=== PATIENT | male | born 1960 | race Caucasian/White ===

== ENCOUNTER 2016-11-11 05:56 | Inpatient (IN) | payer MEDICAID ==
[~2016-11-11] VITALS: Ht 188 cm; Wt 109.2 kg
[2016-11-11] MEDS ORDERED: SODIUM CHLORIDE 0.9% 1,000 ML IV ONE (07:00)
[2016-11-11] MEDS ORDERED: FUROSEMIDE 40 MG/4 ML VIAL IV ONE (07:00)
[2016-11-11 07:50] LABS: Basophils # (auto) 0 uL; Basophils % (auto) 0.2 % (0.0-2.0); Eosinophils # (auto) 0.1 uL; Eosinophils % (auto) 1.3 % (0.0-7.0); Hematocrit 44.3 % (41.0-53.0); Hemoglobin 14.6 g/dL (13.5-17.5); Lymphocytes # (auto) 1.3 uL; Lymphocytes % (auto) 13.8 % (10.0-50.0); Mean Corpuscular Hemoglobin 29.8 pg (28.0-32.0); Mean Corpuscular Hgb Conc. 33.1 g/dL (32.0-36.0); Mean Corpuscular Volume 90.2 fL (80.0-100.0); Mean Platelet Volume 8.6 fL (7.4-10.4); Monocytes # (auto) 0.7 uL; Monocytes % (auto) 7.7 % (0.0-12.0); Neutrophils # (auto) 7.4 uL; Platelet Count (auto) 298 10^3/uL (140-450); Red Cell Distribution Width 14.1 % (11.6-16.0); White Blood Cell 9.6 10^3/uL (4.4-10.8)
[2016-11-11 08:16] LABS: Albumin 3.6 g/dL (3.4-5.0); Bilirubin, Total 0.8 mg/dL (0.2-1.0); Calcium 8.5 mg/dL (8.5-10.1); Magnesium 2.3 mg/dL (1.6-2.6); Potassium 4.1 mmol/L (3.5-5.1); Total Protein 7.2 g/dL (6.4-8.2)
[2016-11-11 08:19] LABS: B-Type Natriuretic Peptide 997.26 pg/mL (0-100); Temperature: 23.3 C (20.0-25.0)
[2016-11-11 09:22] LABS: Urine RBC None Seen /hpf (0 - 3)
[2016-11-11 09:42] LABS: Urine Bilirubin Negative (Negative); Urine Blood Negative /uL (Negative); Urine Color Yellow (Yellow); Urine Glucose Normal (Normal); Urine Ketone Negative (Negative); Urine Nitrite Negative (Negative); Urine Squamous Epithelial Cell FEW /hpf (<5); Urine Urobilinogen Normal (Negative); Urine pH 5.5 (5.0-8.0)
[2016-11-11] MEDS ORDERED: ACETAMINOPHEN 500 MG TAB PO PRN (12:45)
[2016-11-11] MEDS ORDERED: ALBUTEROL SULF 2.5 MG/0.5ML(0.5%) NEB SOLN NEB PRN (12:45)
[2016-11-11] MEDS ORDERED: NITROGLYCERIN 0.4 MG SL TAB SL PRN (12:45)
[2016-11-11] MEDS ORDERED: PROMETHAZINE HCL 25 MG/ML 1ML IV PRN (12:45)
[2016-11-11] MEDS ORDERED: MORPHINE SULF INJ 2 MG/ML SYRINGE 1ML IV PRN ×2 (12:45)
[2016-11-11] MEDS ORDERED: LEVOFLOXACIN 500MG 100 ML IV ONE (12:45)
[2016-11-11] MEDS ORDERED: TEMAZEPAM 15 MG CAP PO PRN (12:45)
[2016-11-11] MEDS ORDERED: LORazepam 0.5 MG TAB PO PRN (12:45)
[2016-11-11] MEDS: ENOXAPARIN SOD 40 MG/0.4 ML SYRINGE SC SCH (12:49)
[2016-11-11 13:21] LABS: Amylase 34 U/L (25-115)
[2016-11-11] MEDS ORDERED: POTA-165 PO (14:01)
[2016-11-11] MEDS ORDERED: LISI10TA6 PO (14:01)
[2016-11-11] MEDS ORDERED: ASPI81TA27 PO (14:01)
[2016-11-11] MEDS ORDERED: FURO40TA4 PO (14:01)
[2016-11-11 14:12] LABS: INR 1.03 (0.9-1.15); Partial Thromboplastin Time 29.3 sec (22.64-33.71); Prothrombin Time 11.2 sec (9.37-12.3)
[2016-11-11 14:20] VITALS: BP 119/69
[2016-11-11 14:33] VITALS: BP 159/72
[2016-11-11] MEDS: POTASSIUM CHL 20 Meq TABLET PO SCH (15:22)
[2016-11-11] MEDS: FAMOTIDINE (10MG/ML) 2ML VL IV SCH (15:22)
[2016-11-11] MEDS: CARVEDILOL 3.125 MG TAB PO SCH ×2 (15:23→22:25)
[2016-11-11 17:00] VITALS: BP 105/71
[2016-11-11] MEDS: ALBUTEROL SULF 2.5 MG/0.5ML(0.5%) NEB SOLN NEB SCH (19:04)
[2016-11-11] MEDS ORDERED: PROMETHAZINE W/CODEINE 5 ML ORAL SYRUP PO PRN (21:00)
[2016-11-11 22:00] VITALS: BP 115/73
[2016-11-11 23:30] VITALS: BP 101/53
[2016-11-12] MEDS: ALBUTEROL SULF 2.5 MG/0.5ML(0.5%) NEB SOLN NEB SCH ×4 (00:28→18:39)
[2016-11-12] MEDS: FAMOTIDINE (10MG/ML) 2ML VL IV SCH ×2 (00:33→12:04)
[2016-11-12] MEDS: HYDROcodone-ACET 5/325MG TAB PO PRN ×2 (00:46→18:14)
[2016-11-12 05:00] VITALS: BP 103/68
[2016-11-12 07:53] VITALS: BP 106/62
[2016-11-12 09:23] LABS: B-Type Natriuretic Peptide 698.43 pg/mL (0-100); Temperature: 22.9 C (20.0-25.0)
[2016-11-12] MEDS: ENOXAPARIN SOD 40 MG/0.4 ML SYRINGE SC SCH (09:27)
[2016-11-12] MEDS: POTASSIUM CHL 20 Meq TABLET PO SCH ×2 (09:27→22:28)
[2016-11-12] MEDS: CARVEDILOL 3.125 MG TAB PO SCH ×2 (09:27→22:27)
[2016-11-12] MEDS ORDERED: FUROSEMIDE 40 MG/4 ML VIAL IV SCH (10:00)
[2016-11-12] MEDS ORDERED: LEVOFLOXACIN 500MG 100 ML IV SCH (10:00)
[2016-11-12 12:21] VITALS: BP 110/65
[2016-11-12] MEDS ORDERED: ASPirin-EC 81 mg tab PO ONE (14:00)
[2016-11-12 15:52] VITALS: BP 97/66
[2016-11-12 20:00] VITALS: BP 121/61
[2016-11-12] MEDS: FUROSEMIDE 40 MG/4 ML VIAL IV SCH (22:26)
[2016-11-12] MEDS: ENALAPRIL MALEATE 2.5 MG TAB PO SCH (22:28)
[2016-11-13] MEDS: HYDROcodone-ACET 5/325MG TAB PO PRN (00:26)
[2016-11-13] MEDS: ALBUTEROL SULF 2.5 MG/0.5ML(0.5%) NEB SOLN NEB SCH ×3 (01:15→11:40)
[2016-11-13 05:10] VITALS: BP 106/48
[2016-11-13 07:41] LABS: Basophils # (auto) 0 uL; Basophils % (auto) 0.4 % (0.0-2.0); Eosinophils # (auto) 0.4 uL; Eosinophils % (auto) 3.5 % (0.0-7.0); Hematocrit 46.5 % (41.0-53.0); Hemoglobin 15.5 g/dL (13.5-17.5); Mean Corpuscular Hemoglobin 29.8 pg (28.0-32.0); Mean Corpuscular Hgb Conc. 33.4 g/dL (32.0-36.0); Mean Corpuscular Volume 89.1 fL (80.0-100.0); Monocytes # (auto) 1.1 uL; Monocytes % (auto) 10.9 % (0.0-12.0); Neutrophils # (auto) 6.6 uL; Neutrophils % (auto) 65.2 % (37.0-80.0); Platelet Count (auto) 316 10^3/uL (140-450); Red Cell Distribution Width 14.1 % (11.6-16.0); White Blood Cell 10.1 10^3/uL (4.4-10.8)
[2016-11-13 08:00] VITALS: BP 104/70
[2016-11-13 08:04] VITALS: BP 104/70
[2016-11-13 08:14] LABS: B-Type Natriuretic Peptide 324.06 pg/mL (0-100); Temperature: 23.5 C (20.0-25.0)
[2016-11-13 08:17] LABS: BUN/Creatinine Ratio 21.7; Calcium 8.9 mg/dL (8.5-10.1); Potassium 3.9 mmol/L (3.5-5.1)
[2016-11-13] MEDS: CARVEDILOL 3.125 MG TAB PO SCH (09:40)
[2016-11-13] MEDS: ENALAPRIL MALEATE 2.5 MG TAB PO SCH (09:41)
[2016-11-13] MEDS: POTASSIUM CHL 20 Meq TABLET PO SCH (09:41)
[2016-11-13] MEDS: FUROSEMIDE 40 MG/4 ML VIAL IV SCH (09:41)
[2016-11-13] MEDS: ENOXAPARIN SOD 40 MG/0.4 ML SYRINGE SC SCH (09:42)
[2016-11-13] MEDS ORDERED: ASPirin-EC 81 mg tab PO SCH (10:00)
[2016-11-13] MEDS ORDERED: ENA2.5T PO (10:13)
[2016-11-13] MEDS ORDERED: ATOR10TA52 PO (10:13)
[2016-11-13] MEDS ORDERED: CAR3125T PO (10:13)
[2016-11-13 10:58] VITALS: BP 104/70
[2016-11-13 11:26] VITALS: BP 100/52
== END 2016-11-13 12:00 | disposition home or self-care (01) | DRG 194 ==
LOC: ER 05:56 → TELE 05:57 → TELE-WESTW 13:37 → TELE-E-ADS 13:57 → TELE-WESTW 14:26
PROVIDERS: ADMIT Internal Medicine; ATTEND Internal Medicine
DX: I11.0 Hypertensive heart disease with heart failure (principal); I95.9 Hypotension, unspecified; I42.8 Other cardiomyopathies; K42.9 Umbilical hernia without obstruction or gangrene; Z68.30 Body mass index [BMI] 30.0-30.9, adult; F41.9 Anxiety disorder, unspecified; J44.9 Chronic obstructive pulmonary disease, unspecified; I50.23 Acute on chronic systolic (congestive) heart failure; K43.9 Ventral hernia without obstruction or gangrene; E66.9 Obesity, unspecified; E78.5 Hyperlipidemia, unspecified; F15.10 Other stimulant abuse, uncomplicated; F17.210 Nicotine dependence, cigarettes, uncomplicated; R00.0 Tachycardia, unspecified; Z91.19 Patient's noncompliance with other medical treatment and regimen; Z90.89 Acquired absence of other organs
CPT/HCPCS: 36415; 71020; 74176; 80048; 80053; 80061; 80307; 81001; 82150; 82550; 83690; 83735; 83880; 84443; 84484; 85025; 85610; 85652; 85730; 93005; 93306; 94640; 94761; 96374; J1956; J3490

== ENCOUNTER 2016-12-08 00:38 | Emergency (ER) | payer MEDICAID ==
[~2016-12-08] VITALS: Ht 188 cm; Wt 107.5 kg
[~2016-12-08 00:38] MED LIST: ASPI81TA27 PO; ATOR10TA52 PO; CAR3125T PO; ENA2.5T PO; FURO40TA4 PO; POTA-165 PO
[2016-12-08 01:58] LABS: Basophils # (auto) 0.1 uL; Basophils % (auto) 0.6 % (0.0-2.0); CONDITION Y; Eosinophils # (auto) 0.4 uL; Eosinophils % (auto) 3.6 % (0.0-7.0); Hematocrit 41.5 % (41.0-53.0); Hemoglobin 13.7 g/dL (13.5-17.5); Lymphocytes # (auto) 2.3 uL; Lymphocytes % (auto) 21.6 % (10.0-50.0); Mean Corpuscular Hemoglobin 29.7 pg (28.0-32.0); Mean Platelet Volume 8.5 fL (7.4-10.4); Monocytes # (auto) 0.7 uL; Monocytes % (auto) 6.3 % (0.0-12.0); Neutrophils # (auto) 7.2 uL; Neutrophils % (auto) 67.9 % (37.0-80.0); Platelet Count (auto) 309 10^3/uL (140-450); Red Cell Distribution Width 14.8 % (11.6-16.0); White Blood Cell 10.5 10^3/uL (4.4-10.8)
[2016-12-08 02:10] LABS: INR 1.06 (0.9-1.15); Partial Thromboplastin Time 28.2 sec (22.64-33.71); Prothrombin Time 11.6 sec (9.37-12.3)
[2016-12-08 02:13] LABS: Albumin 3.2 g/dL (3.4-5.0)
[2016-12-08 03:14] LABS: Bilirubin, Total 0.9 mg/dL (0.2-1.0); Calcium 8.3 mg/dL (8.5-10.1); Total Protein 6.5 g/dL (6.4-8.2)
[2016-12-08 05:58] VITALS: BP 132/90
== END 2016-12-08 08:45 | disposition left against medical advice (07) ==
LOC: ER 00:38
DX: R06.02 Shortness of breath (principal); Z53.21 Procedure and treatment not carried out due to patient leaving prior to being seen by health care provider
CPT/HCPCS: 36415; 71010; 80053; 84484; 85025; 85610; 85730

== ENCOUNTER 2016-12-09 14:07 | Inpatient (IN) | payer MEDICAID ==
[~2016-12-09] VITALS: Ht 188 cm; Wt 105.1 kg
[2016-12-09] MEDS ORDERED: methylPREDNISolone SOD SUCC 125 MG/2 ML VL IV ONE (18:30)
[2016-12-09] MEDS ORDERED: IPRATROPIUM BROM 0.5 MG/2.5ML INH SOL HHN ONE (18:30)
[2016-12-09] MEDS ORDERED: ALBUTEROL SULF 2.5 MG/0.5ML(0.5%) NEB SOLN HHN ONE (18:30)
[2016-12-09 19:04] LABS: Basophils # (auto) 0.1 uL; CONDITION Y; Eosinophils # (auto) 0.5 uL; Eosinophils % (auto) 4.8 % (0.0-7.0); Hematocrit 41.3 % (41.0-53.0); Hemoglobin 13.6 g/dL (13.5-17.5); Lymphocytes # (auto) 2.5 uL; Lymphocytes % (auto) 24.5 % (10.0-50.0); Mean Corpuscular Hemoglobin 29.6 pg (28.0-32.0); Mean Corpuscular Hgb Conc. 32.8 g/dL (32.0-36.0); Mean Corpuscular Volume 90.3 fL (80.0-100.0); Mean Platelet Volume 8.8 fL (7.4-10.4); Monocytes # (auto) 0.8 uL; Monocytes % (auto) 7.3 % (0.0-12.0); Neutrophils # (auto) 6.4 uL; Neutrophils % (auto) 62.4 % (37.0-80.0); Platelet Count (auto) 292 10^3/uL (140-450); Red Cell Distribution Width 15.2 % (11.6-16.0); White Blood Cell 10.3 10^3/uL (4.4-10.8)
[2016-12-09 19:19] LABS: Albumin 3.1 g/dL (3.4-5.0); Magnesium 1.9 mg/dL (1.6-2.6); Potassium 3.8 mmol/L (3.5-5.1)
[2016-12-09 19:23] LABS: Bilirubin, Total 0.8 mg/dL (0.2-1.0); Total Protein 6.2 g/dL (6.4-8.2)
[2016-12-09 19:26] LABS: B-Type Natriuretic Peptide 1377.34 pg/mL (0-100)
[2016-12-09] MEDS ORDERED: cefTRIAXone 1GM/50ML D5W 50 ML IV ONE (19:30)
[2016-12-09 19:35] LABS: Temperature: 23.3 C (20.0-25.0)
[2016-12-09 20:45] LABS: Urine Bilirubin Negative (Negative); Urine Blood Negative /uL (Negative); Urine Ca Oxalate Crystal FEW (None Seen); Urine Color Yellow (Yellow); Urine Glucose Normal (Normal); Urine Ketone Negative (Negative); Urine Mucus FEW (None Seen); Urine Nitrite Negative (Negative); Urine RBC 2 /hpf (0 - 3); Urine Squamous Epithelial Cell FEW /hpf (<5); Urine pH 5.5 (5.0-8.0)
[2016-12-09] MEDS ORDERED: ALBUTEROL SULF 2.5 MG/0.5ML(0.5%) NEB SOLN NEB PRN (22:15)
[2016-12-09] MEDS ORDERED: MORPHINE SULF INJ 2 MG/ML SYRINGE 1ML IV PRN (22:15)
[2016-12-09] MEDS ORDERED: HYDROcodone-ACET 5/325MG TAB PO PRN (22:15)
[2016-12-09] MEDS ORDERED: ACETAMINOPHEN 325 MG TAB PO PRN (22:15)
[2016-12-09] MEDS ORDERED: ONDANSETRON HCL 4 MG/2 ML VIAL IV PRN (22:15)
[2016-12-09] MEDS ORDERED: TEMAZEPAM 15 MG CAP PO PRN (22:15)
[2016-12-09] MEDS ORDERED: IPRATROPIUM BROM 0.5 MG/2.5ML INH SOL NEB PRN (22:15)
[2016-12-09] MEDS ORDERED: NITROGLYCERIN 0.4 MG SL TAB SL PRN (22:15)
[2016-12-09] MEDS ORDERED: ENOXAPARIN SOD 40 MG/0.4 ML SYRINGE SC SCH (22:25)
[2016-12-09] MEDS ORDERED: FAMOTIDINE 20 MG TAB PO SCH (22:27)
[2016-12-09] MEDS ORDERED: CARVEDILOL 3.125 MG TAB PO SCH (22:27)
[2016-12-09] MEDS ORDERED: ATORVASTATIN 20 MG TAB PO SCH (22:27)
[2016-12-09 22:50] VITALS: BP 123/84
[2016-12-10] VITALS (7 sets, daily range): BP systolic 101–128; BP diastolic 67–90
[2016-12-10] MEDS ORDERED: AMOX250C3 PO (05:39)
[2016-12-10] MEDS ORDERED: FUROSEMIDE 40 MG TAB PO SCH (10:00)
[2016-12-10] MEDS ORDERED: ENALAPRIL MALEATE 2.5 MG TAB PO SCH (10:00)
[2016-12-10] MEDS ORDERED: FUROSEMIDE 20 MG/2 ML VIAL IV SCH (10:00)
[2016-12-10 10:24] LABS: Basophils # (auto) 0 uL; Basophils % (auto) 0.4 % (0.0-2.0); CONDITION Y; Eosinophils # (auto) 0 uL; Hematocrit 39.3 % (41.0-53.0); Hemoglobin 13.1 g/dL (13.5-17.5); Lymphocytes # (auto) 0.9 uL; Lymphocytes % (auto) 11.3 % (10.0-50.0); Mean Corpuscular Hemoglobin 30.1 pg (28.0-32.0); Mean Corpuscular Hgb Conc. 33.4 g/dL (32.0-36.0); Mean Corpuscular Volume 90.3 fL (80.0-100.0); Mean Platelet Volume 9.1 fL (7.4-10.4); Monocytes # (auto) 0.3 uL; Monocytes % (auto) 3.6 % (0.0-12.0); Neutrophils # (auto) 6.8 uL; Neutrophils % (auto) 84.7 % (37.0-80.0); Platelet Count (auto) 313 10^3/uL (140-450); Red Cell Distribution Width 15.5 % (11.6-16.0); White Blood Cell 8.1 10^3/uL (4.4-10.8)
[2016-12-10] MEDS: ASPirin 81 mg TAB PO SCH (10:24)
[2016-12-10 10:29] LABS: BUN/Creatinine Ratio 20.4; Calcium 8.2 mg/dL (8.5-10.1); Potassium 4.4 mmol/L (3.5-5.1)
[2016-12-10 10:32] LABS: Bilirubin, Total 0.6 mg/dL (0.2-1.0)
[2016-12-10] MEDS ORDERED: IPRATROPIUM BROM 0.5 MG/2.5ML INH SOL NEB PRN (14:15)
[2016-12-10] MEDS ORDERED: MORPHINE SULF INJ 2 MG/ML SYRINGE 1ML IV PRN (14:15)
[2016-12-10] MEDS ORDERED: TEMAZEPAM 15 MG CAP PO PRN (14:15)
[2016-12-10] MEDS ORDERED: ACETAMINOPHEN 325 MG TAB PO PRN (14:15)
[2016-12-10] MEDS ORDERED: ONDANSETRON HCL 4 MG/2 ML VIAL IV PRN (14:15)
[2016-12-10] MEDS ORDERED: ALBUTEROL SULF 2.5 MG/0.5ML(0.5%) NEB SOLN NEB PRN (14:15)
[2016-12-10] MEDS: FUROSEMIDE 40 MG/4 ML VIAL IV SCH (18:48)
[2016-12-10] MEDS ORDERED: ENOXAPARIN SOD 120 MG/0.8 ML SYRINGE SC ONE (20:15)
[2016-12-10] MEDS: HYDROcodone-ACET 5/325MG TAB PO PRN (21:13)
[2016-12-10] MEDS: POTASSIUM CHL 20 Meq TABLET PO SCH (22:35)
[2016-12-10] MEDS: ATORVASTATIN 20 MG TAB PO SCH (22:36)
[2016-12-10] MEDS: FAMOTIDINE 20 MG TAB PO SCH (22:36)
[2016-12-10] MEDS: CARVEDILOL 3.125 MG TAB PO SCH (22:37)
[2016-12-11] VITALS (7 sets, daily range): BP systolic 96–113; BP diastolic 56–74
[2016-12-11] MEDS: FUROSEMIDE 40 MG/4 ML VIAL IV SCH ×3 (05:46→18:41)
[2016-12-11 07:49] LABS: BUN/Creatinine Ratio 19.4; Calcium 8.2 mg/dL (8.5-10.1); Potassium 4.1 mmol/L (3.5-5.1)
[2016-12-11] MEDS: NITROGLYCERIN 0.4 MG SL TAB SL PRN ×3 (09:23→19:48)
[2016-12-11] MEDS: ASPirin 81 mg TAB PO SCH (10:13)
[2016-12-11] MEDS: ENOXAPARIN SOD 40 MG/0.4 ML SYRINGE SC SCH (10:13)
[2016-12-11] MEDS: FAMOTIDINE 20 MG TAB PO SCH ×2 (10:13→22:24)
[2016-12-11] MEDS: POTASSIUM CHL 20 Meq TABLET PO SCH ×2 (10:14→22:25)
[2016-12-11] MEDS: AMIODARONE HCL 200 MG TAB PO SCH ×2 (10:15→22:25)
[2016-12-11] MEDS: CARVEDILOL 3.125 MG TAB PO SCH ×2 (10:23→22:31)
[2016-12-11] MEDS: ENALAPRIL MALEATE 2.5 MG TAB PO SCH (15:56)
[2016-12-11 16:05] LABS: BUN/Creatinine Ratio 18.3; Calcium 8.3 mg/dL (8.5-10.1); Potassium 4.2 mmol/L (3.5-5.1)
[2016-12-11 19:34] LABS: B-Type Natriuretic Peptide 587.17 pg/mL (0-100)
[2016-12-11 19:59] LABS: Temperature: 22.7 C (20.0-25.0)
[2016-12-11] MEDS: HYDROcodone-ACET 5/325MG TAB PO PRN (20:19)
[2016-12-11] MEDS: ATORVASTATIN 20 MG TAB PO SCH (22:25)
[2016-12-12 05:00] VITALS: BP 109/78
[2016-12-12] MEDS: FUROSEMIDE 40 MG/4 ML VIAL IV SCH ×2 (05:33→18:00)
[2016-12-12 09:00] VITALS: BP 95/59
[2016-12-12] MEDS: ENOXAPARIN SOD 40 MG/0.4 ML SYRINGE SC SCH (10:21)
[2016-12-12] MEDS: ENALAPRIL MALEATE 2.5 MG TAB PO SCH (10:22)
[2016-12-12] MEDS: FAMOTIDINE 20 MG TAB PO SCH (10:22)
[2016-12-12] MEDS: ASPirin 81 mg TAB PO SCH (10:22)
[2016-12-12] MEDS: AMIODARONE HCL 200 MG TAB PO SCH (10:23)
[2016-12-12] MEDS: CARVEDILOL 3.125 MG TAB PO SCH (10:23)
[2016-12-12] MEDS: POTASSIUM CHL 20 Meq TABLET PO SCH (10:23)
[2016-12-12 13:00] VITALS: BP 95/58
[2016-12-12 16:30] VITALS: BP 101/63
[2016-12-12 19:43] VITALS: BP 101/63
== END 2016-12-12 20:40 | disposition home or self-care (01) | DRG 201 ==
LOC: ER 14:07 → TELE-EAST 14:08 → ER 12-10 00:20
PROVIDERS: ADMIT Nurse Practitioner; ATTEND Internal Medicine Pulmonary Disease
DX: I48.92 Unspecified atrial flutter (principal); I50.43 Acute on chronic combined systolic (congestive) and diastolic (congestive) heart failure; J18.9 Pneumonia, unspecified organism; I11.0 Hypertensive heart disease with heart failure; I42.9 Cardiomyopathy, unspecified; J44.1 Chronic obstructive pulmonary disease with (acute) exacerbation; J44.0 Chronic obstructive pulmonary disease with (acute) lower respiratory infection; F17.210 Nicotine dependence, cigarettes, uncomplicated; E78.5 Hyperlipidemia, unspecified; E66.9 Obesity, unspecified; Z82.49 Family history of ischemic heart disease and other diseases of the circulatory system; F41.9 Anxiety disorder, unspecified; J06.9 Acute upper respiratory infection, unspecified; R09.81 Nasal congestion; Z90.89 Acquired absence of other organs; Z71.89 Other specified counseling
CPT/HCPCS: 36415; 71010; 71020; 71250; 80048; 80053; 80307; 81001; 83605; 83735; 83880; 84484; 85025; 85379; 87040; 93005; 93971; 94640; 94761; 96365; 96372; 96375; J0696

== ENCOUNTER 2017-01-19 02:46 | Inpatient (IN) | payer MEDICAID ==
[~2017-01-19] VITALS: Ht 188 cm; Wt 104.7 kg
[~2017-01-19 02:46] MED LIST changes: +AMOX250C3 PO
[2017-01-19] MEDS ORDERED: IPRATROPIUM BROM 0.5 MG/2.5ML INH SOL NEB ONE ×2 (03:15→05:00)
[2017-01-19] MEDS ORDERED: ALBUTEROL SULF 2.5 MG/0.5ML(0.5%) NEB SOLN NEB ONE ×2 (03:15→05:00)
[2017-01-19 03:49] LABS: Basophils # (auto) 0.2 uL; Basophils % (auto) 1.3 % (0.0-2.0); CONDITION Y; Eosinophils # (auto) 0.2 uL; Eosinophils % (auto) 1.3 % (0.0-7.0); Hematocrit 42.3 % (41.0-53.0); Hemoglobin 13.9 g/dL (13.5-17.5); Lymphocytes # (auto) 2.6 uL; Lymphocytes % (auto) 22.6 % (10.0-50.0); Mean Corpuscular Hemoglobin 30.2 pg (28.0-32.0); Mean Corpuscular Hgb Conc. 32.9 g/dL (32.0-36.0); Mean Corpuscular Volume 91.7 fL (80.0-100.0); Mean Platelet Volume 9.1 fL (7.4-10.4); Monocytes # (auto) 0.9 uL; Monocytes % (auto) 7.7 % (0.0-12.0); Neutrophils # (auto) 7.8 uL; Neutrophils % (auto) 67.1 % (37.0-80.0); Platelet Count (auto) 299 10^3/uL (140-450); White Blood Cell 11.7 10^3/uL (4.4-10.8)
[2017-01-19] MEDS ORDERED: methylPREDNISolone SOD SUCC 125 MG/2 ML VL IV ONE (04:00)
[2017-01-19 04:08] LABS: INR 1.14 (0.9-1.15); Partial Thromboplastin Time 28.9 sec (22.64-33.71)
[2017-01-19 04:09] LABS: Albumin 3.2 g/dL (3.4-5.0); Calcium 8.1 mg/dL (8.5-10.1); Potassium 4.1 mmol/L (3.5-5.1)
[2017-01-19 04:11] LABS: BUN/Creatinine Ratio 13.8
[2017-01-19 04:14] LABS: B-Type Natriuretic Peptide 1471.27 pg/mL (0-100)
[2017-01-19 04:25] LABS: Bilirubin, Total 0.6 mg/dL (0.2-1.0); Total Protein 6.2 g/dL (6.4-8.2)
[2017-01-19 04:26] LABS: Temperature: 22.7 C (20.0-25.0)
[2017-01-19 04:27] LABS: Prothrombin Time 12.4 sec (9.37-12.3)
[2017-01-19] MEDS ORDERED: FUROSEMIDE 40 MG/4 ML VIAL IV ONE (05:45)
[2017-01-19] MEDS ORDERED: ENALAPRILAT 1.25 MG/ML-1ML VIAL IV ONE (05:45)
[2017-01-19] MEDS ORDERED: ALBUTEROL SULF 2.5 MG/0.5ML(0.5%) NEB SOLN NEB PRN (07:00)
[2017-01-19] MEDS ORDERED: NITROGLYCERIN 0.4 MG SL TAB SL PRN (07:00)
[2017-01-19] MEDS ORDERED: HYDROcodone-ACET 5/325MG TAB PO PRN (07:00)
[2017-01-19] MEDS ORDERED: ONDANSETRON HCL 4 MG/2 ML VIAL IV PRN (07:00)
[2017-01-19] MEDS ORDERED: IPRATROPIUM BROM 0.5 MG/2.5ML INH SOL NEB PRN (07:00)
[2017-01-19] MEDS ORDERED: TEMAZEPAM 15 MG CAP PO PRN (07:00)
[2017-01-19] MEDS ORDERED: ACETAMINOPHEN 325 MG TAB PO PRN (07:00)
[2017-01-19] MEDS ORDERED: MORPHINE SULF INJ 2 MG/ML SYRINGE 1ML IV PRN (07:00)
[2017-01-19 07:26] LABS: Urine Bilirubin Negative (Negative); Urine Blood Negative /uL (Negative); Urine Color Yellow (Yellow); Urine Glucose Normal (Normal); Urine Hyaline Cast FEW /lpf (0 - 2); Urine Ketone Negative (Negative); Urine Mucus FEW (None Seen); Urine Nitrite Negative (Negative); Urine RBC 1 /hpf (0 - 3); Urine Squamous Epithelial Cell FEW /hpf (<5); Urine Urobilinogen Normal (Negative); Urine pH 5.5 (5.0-8.0)
[2017-01-19 08:47] VITALS: BP 124/84
[2017-01-19] MEDS ORDERED: POTASSIUM CHL 20 Meq TABLET PO SCH (10:00)
[2017-01-19] MEDS: CARVEDILOL 3.125 MG TAB PO SCH ×2 (10:18→21:52)
[2017-01-19] MEDS: FAMOTIDINE 20 MG TAB PO SCH ×2 (10:19→21:53)
[2017-01-19] MEDS: ENALAPRIL MALEATE 2.5 MG TAB PO SCH ×2 (10:19→21:53)
[2017-01-19] MEDS: ENOXAPARIN SOD 40 MG/0.4 ML SYRINGE SC SCH (10:25)
[2017-01-19 11:41] VITALS: BP 141/78
[2017-01-19] MEDS ORDERED: POTASSIUM CHL 10% (20 MEQ/15ML) ORAL SOLN PO ONE (15:00)
[2017-01-19] MEDS ORDERED: FUROSEMIDE 100 MG/10ML VIAL IV ONE (15:00)
[2017-01-19 16:24] VITALS: BP 112/98
[2017-01-19 16:43] VITALS: BP 134/65
[2017-01-19] MEDS ORDERED: guaiFENesin 200 MG/10 ML UD GT PRN (17:00)
[2017-01-19] MEDS: FUROSEMIDE 40 MG/4 ML VIAL IV SCH (17:41)
[2017-01-19] MEDS: methylPREDNISolone SOD SUCC 125 MG/2 ML VL IV SCH ×2 (17:41→23:33)
[2017-01-19] MEDS ORDERED: FUROSEMIDE 40 MG TAB PO SCH (18:00)
[2017-01-19] MEDS: IPRATROPIUM BROM 0.5 MG/2.5ML INH SOL NEB SCH (18:09)
[2017-01-19] MEDS: ALBUTEROL SULF 2.5 MG/0.5ML(0.5%) NEB SOLN NEB SCH (18:09)
[2017-01-19] MEDS ORDERED: guaiFENesin 200 MG/10 ML UD PO PRN (18:17)
[2017-01-19] MEDS: POTASSIUM CHL 20 Meq TABLET PO SCH (21:52)
[2017-01-19] MEDS: ATORVASTATIN 20 MG TAB PO SCH (21:52)
[2017-01-19 22:00] VITALS: BP 125/59
[2017-01-20] MEDS: FUROSEMIDE 40 MG/4 ML VIAL IV SCH ×2 (05:44→17:57)
[2017-01-20] MEDS: methylPREDNISolone SOD SUCC 125 MG/2 ML VL IV SCH ×4 (05:44→23:33)
[2017-01-20 05:51] VITALS: BP 104/71
[2017-01-20 06:27] LABS: Basophils # (auto) 0 uL; Basophils % (auto) 0.2 % (0.0-2.0); CONDITION Y; Eosinophils # (auto) 0 uL; Hematocrit 42.2 % (41.0-53.0); Hemoglobin 14.1 g/dL (13.5-17.5); Lymphocytes # (auto) 0.7 uL; Mean Corpuscular Hemoglobin 30.1 pg (28.0-32.0); Mean Corpuscular Hgb Conc. 33.3 g/dL (32.0-36.0); Mean Corpuscular Volume 90.3 fL (80.0-100.0); Mean Platelet Volume 9.6 fL (7.4-10.4); Monocytes # (auto) 0.3 uL; Monocytes % (auto) 2.2 % (0.0-12.0); Neutrophils # (auto) 13.8 uL; Neutrophils % (auto) 92.6 % (37.0-80.0); Platelet Count (auto) 298 10^3/uL (140-450); Red Cell Distribution Width 15.7 % (11.6-16.0); White Blood Cell 14.9 10^3/uL (4.4-10.8)
[2017-01-20] MEDS: ALBUTEROL SULF 2.5 MG/0.5ML(0.5%) NEB SOLN NEB SCH ×4 (06:32→19:29)
[2017-01-20] MEDS: IPRATROPIUM BROM 0.5 MG/2.5ML INH SOL NEB SCH ×4 (06:32→19:29)
[2017-01-20 06:35] LABS: Albumin 3.1 g/dL (3.4-5.0); BUN/Creatinine Ratio 22.2; Calcium 8.4 mg/dL (8.5-10.1); Potassium 4.5 mmol/L (3.5-5.1)
[2017-01-20 06:37] LABS: Bilirubin, Total 0.6 mg/dL (0.2-1.0); Total Protein 6.2 g/dL (6.4-8.2)
[2017-01-20 06:41] LABS: B-Type Natriuretic Peptide 1641.05 pg/mL (0-100)
[2017-01-20 06:50] LABS: Temperature: 22.3 C (20.0-25.0)
[2017-01-20 08:00] VITALS: BP 104/71
[2017-01-20 09:01] VITALS: BP 94/45
[2017-01-20] MEDS ORDERED: IOHEXOL 350 MG/ML 100ML IJ ONE (09:28)
[2017-01-20] MEDS: POTASSIUM CHL 20 Meq TABLET PO SCH ×2 (10:07→21:41)
[2017-01-20] MEDS: FAMOTIDINE 20 MG TAB PO SCH ×2 (10:07→21:41)
[2017-01-20] MEDS: CARVEDILOL 3.125 MG TAB PO SCH ×2 (10:09→21:41)
[2017-01-20] MEDS: ENALAPRIL MALEATE 2.5 MG TAB PO SCH ×2 (10:10→21:42)
[2017-01-20] MEDS: ENOXAPARIN SOD 40 MG/0.4 ML SYRINGE SC SCH (10:10)
[2017-01-20 13:00] VITALS: BP 118/65
[2017-01-20 17:00] VITALS: BP 99/44
[2017-01-20] MEDS: ATORVASTATIN 20 MG TAB PO SCH (21:41)
[2017-01-20 21:52] VITALS: BP 107/61
[2017-01-21] MEDS: IPRATROPIUM BROM 0.5 MG/2.5ML INH SOL NEB SCH ×4 (00:45→18:05)
[2017-01-21] MEDS: ALBUTEROL SULF 2.5 MG/0.5ML(0.5%) NEB SOLN NEB SCH ×4 (00:46→18:05)
[2017-01-21 04:49] VITALS: BP 102/69
[2017-01-21] MEDS: methylPREDNISolone SOD SUCC 125 MG/2 ML VL IV SCH ×3 (05:41→16:25)
[2017-01-21] MEDS: FUROSEMIDE 40 MG/4 ML VIAL IV SCH ×2 (05:42→16:25)
[2017-01-21 06:57] LABS: BUN/Creatinine Ratio 28.6; Calcium 8.7 mg/dL (8.5-10.1); Potassium 4.3 mmol/L (3.5-5.1)
[2017-01-21 07:29] LABS: B-Type Natriuretic Peptide 1153.39 pg/mL (0-100)
[2017-01-21 07:31] LABS: Temperature: 22.5 C (20.0-25.0)
[2017-01-21] MEDS ORDERED: METOPROLOL TARTRATE 25 MG TAB ONE (08:55)
[2017-01-21] MEDS ORDERED: IOHEXOL 350 MG/ML 100ML IJ ONE (08:57)
[2017-01-21 09:00] VITALS: BP 122/76
[2017-01-21] MEDS ORDERED: METOPROLOL TARTRATE 25 MG TAB PO ONE (09:00)
[2017-01-21] MEDS: ENOXAPARIN SOD 40 MG/0.4 ML SYRINGE SC SCH (10:00)
[2017-01-21] MEDS: CARVEDILOL 3.125 MG TAB PO SCH (10:00)
[2017-01-21] MEDS: ENALAPRIL MALEATE 2.5 MG TAB PO SCH (10:00)
[2017-01-21] MEDS: POTASSIUM CHL 20 Meq TABLET PO SCH (10:30)
[2017-01-21] MEDS: FAMOTIDINE 20 MG TAB PO SCH (10:30)
[2017-01-21 13:00] VITALS: BP 127/74
[2017-01-21 16:47] VITALS: BP 113/61
[2017-01-21 18:13] VITALS: BP 122/76
== END 2017-01-21 18:40 | disposition home or self-care (01) | DRG 194 ==
LOC: ER 02:47 → TELE 02:48 → TELE-E-ADS 08:24 → TELE-WESTW 11:18
PROVIDERS: ADMIT Nurse Practitioner; ATTEND Internal Medicine Pulmonary Disease
DX: I11.0 Hypertensive heart disease with heart failure (principal); J96.11 Chronic respiratory failure with hypoxia; I42.9 Cardiomyopathy, unspecified; J44.1 Chronic obstructive pulmonary disease with (acute) exacerbation; E44.1 Mild protein-calorie malnutrition; I50.43 Acute on chronic combined systolic (congestive) and diastolic (congestive) heart failure; E78.5 Hyperlipidemia, unspecified; I25.10 Atherosclerotic heart disease of native coronary artery without angina pectoris; J98.11 Atelectasis; F15.90 Other stimulant use, unspecified, uncomplicated; F12.90 Cannabis use, unspecified, uncomplicated; F17.210 Nicotine dependence, cigarettes, uncomplicated; Z79.82 Long term (current) use of aspirin; Z82.49 Family history of ischemic heart disease and other diseases of the circulatory system; Z83.6 Family history of other diseases of the respiratory system
CPT/HCPCS: 36415; 71010; 80048; 80053; 80307; 81001; 83735; 83880; 84484; 85025; 85610; 85730; 87081; 93005; 94640; 94761; 96374; 96375